=== PATIENT | male | born 1985 | race Caucasian/White ===

== ENCOUNTER 2022-11-22 10:42 | Outpatient (CLI) | payer OTHER ==
[~2022-11-22 10:42] MED LIST: Magnevist 469MG/ML 20 ML VIAL ONE
== END 2022-11-22 10:43 | disposition home or self-care (01) ==
LOC: CSHMRI 10:42
PROVIDERS: ATTEND Nurse Practitioner Family
DX: H93.A2 Pulsatile tinnitus, left ear (principal)
CPT/HCPCS: 70544; 70553; A9579